=== PATIENT | female | born 1960 | race Caucasian/White ===

== ENCOUNTER 2020-03-06 12:25 | Day surgery (SDC) | payer MEDICARE ==
[~2020-03-06] VITALS: Ht 160 cm; Wt 82.5 kg
[~2020-03-06 12:25] MED LIST: CALCITRATE200 M1 PO; CYCL10 PO; GABA300; GABA800 PO; HYDACE5 PO; IBUP800 PO; META800 PO; MIACALCIN200 UNIT/1 IM; NAPR500 PO; OMEP20ER PO; PSEUDOEPHEDRINE30 MG PO; Percocet 5-3251 EACH PO
[2020-03-06] MEDS ORDERED: Norco 10-325 T1 EACH PO (12:53)
== END 2020-03-06 14:52 | disposition home or self-care (01) ==
LOC: ORSCSDS 12:25
PROVIDERS: Podiatrist
PROC: 0QSN04Z Reposition Right Metatarsal with Internal Fixation Device, Open Approach (ICD-10-PCS; principal; 2020-03-06 13:30)
DX: M79.671 Pain in right foot (principal); M77.41 Metatarsalgia, right foot; M24.574 Contracture, right foot; Z87.891 Personal history of nicotine dependence; Z79.899 Other long term (current) drug therapy
CPT/HCPCS: C1713; J0690; J2250; J2704; J3010; J7120

== ENCOUNTER → 2023-02-17 | Outpatient (CLI) | payer MEDICARE ==
[~2023-02-17] MED LIST changes: +Norco 10-325 T1 EACH PO
== END ==
LOC: PLD 09:47 → LAB SHORT 09:47
DX: R21 Rash and other nonspecific skin eruption (principal)
CPT/HCPCS: 88312

== ENCOUNTER → 2024-04-05 | Outpatient (CLI) | payer MEDICARE, OTHER ==
[2024-04-05 18:55] LABS: Source, Urine Clean Catch
[2024-04-05 18:59] LABS: Appearance, Urine Clear (Clear); Bilirubin, Urine Neg (Neg); Blood, Urine Neg (Neg); Color, Urine Yellow (P-Yellow); Glucose Qualitative, Urine Neg (Neg); Ketones, Urine Neg (Neg); Leukocyte Esterase, Urine Neg (Neg); Nitrite, Urine Neg (Neg); Protein, Urine Neg (Neg); Urobilinogen, Urine NORM (Normal); pH, Urine 6.5 (5.0-8.0)
== END | disposition home or self-care (01) ==
LOC: LAB SHORT 17:24 → LAB 17:24
PROVIDERS: Obstetrics & Gynecology
DX: R33.9 Retention of urine, unspecified (principal)
CPT/HCPCS: 81003